=== PATIENT | female | born 1945 | race Caucasian/White ===

== ENCOUNTER → 2023-08-24 12:46 | Outpatient (REF) | payer OTHER, SELFPAY | LOC: RAD 12:46 | PROVIDERS: ATTENDING PHYSICIAN Surgery Vascular Surgery; FAMILY PHYSICIAN Internal Medicine | DX: I77.9 Disorder of arteries and arterioles, unspecified (principal); G93.0 Cerebral cysts | CPT/HCPCS: 93880 ==

== ENCOUNTER → 2024-01-04 06:29 | Day surgery (SDC) | payer OTHER, SELFPAY | LOC: GI 06:29 | PROVIDERS: ATTENDING PHYSICIAN Internal Medicine Gastroenterology | DX: Z12.11 Encounter for screening for malignant neoplasm of colon (principal); K57.30 Diverticulosis of large intestine without perforation or abscess without bleeding; K64.0 First degree hemorrhoids; D12.0 Benign neoplasm of cecum; Z80.0 Family history of malignant neoplasm of digestive organs | CPT/HCPCS: 45385; 88305 ==

== ENCOUNTER → 2024-02-04 14:10 | Outpatient (REF) | payer OTHER, SELFPAY | LOC: WDC 14:10 | PROVIDERS: ATTENDING PHYSICIAN Family Medicine | DX: Z78.0 Asymptomatic menopausal state (principal); Z12.31 Encounter for screening mammogram for malignant neoplasm of breast | CPT/HCPCS: 77063; 77067; 77080 ==

== ENCOUNTER → 2024-02-25 12:59 | Outpatient (REF) | payer OTHER, SELFPAY | LOC: RAD 12:59 | PROVIDERS: ATTENDING PHYSICIAN Surgery Vascular Surgery; FAMILY PHYSICIAN Family Medicine | DX: I77.9 Disorder of arteries and arterioles, unspecified (principal) | CPT/HCPCS: 93880 ==

== ENCOUNTER → 2024-04-14 10:17 | Outpatient (REF) | payer OTHER, SELFPAY | LOC: RCS 10:17 | PROVIDERS: ATTENDING PHYSICIAN Internal Medicine; FAMILY PHYSICIAN Family Medicine | DX: I48.0 Paroxysmal atrial fibrillation (principal) | CPT/HCPCS: 93225; 93226 ==

== ENCOUNTER 2024-08-15 08:28 | Outpatient (RCR) | payer OTHER, SELFPAY ==
[2024-08-15 08:56] VITALS: BP 161/65
[2024-08-15] MEDS: RECLAST 100 IV (08:57)
== END 2024-08-16 08:39 | disposition home or self-care (01) ==
LOC: OID 08:28
PROVIDERS: ATTENDING PHYSICIAN Internal Medicine Endocrinology, Diabetes & Metabolism; FAMILY PHYSICIAN Family Medicine
DX: M81.0 Age-related osteoporosis without current pathological fracture (principal)
CPT/HCPCS: 96365; J3489

== ENCOUNTER → 2024-08-31 11:32 | Outpatient (REF) | payer OTHER, SELFPAY | LOC: DHVS 11:32 | PROVIDERS: ATTENDING PHYSICIAN Surgery Vascular Surgery; FAMILY PHYSICIAN Family Medicine | DX: I77.9 Disorder of arteries and arterioles, unspecified (principal) | CPT/HCPCS: 93880 ==

== ENCOUNTER → 2024-09-19 06:45 | Outpatient (REF) | payer OTHER, SELFPAY | LOC: RAD 06:45 | PROVIDERS: ATTENDING PHYSICIAN Nurse Practitioner Family; FAMILY PHYSICIAN Family Medicine | DX: M79.89 Other specified soft tissue disorders (principal); M79.661 Pain in right lower leg | CPT/HCPCS: 93971 ==

== ENCOUNTER → 2024-10-13 10:20 | Outpatient (REF) | payer OTHER, SELFPAY | LOC: RCS 10:20 | PROVIDERS: ATTENDING PHYSICIAN Internal Medicine; FAMILY PHYSICIAN Family Medicine | DX: I50.32 Chronic diastolic (congestive) heart failure (principal); Z95.2 Presence of prosthetic heart valve; I65.23 Occlusion and stenosis of bilateral carotid arteries; I36.1 Nonrheumatic tricuspid (valve) insufficiency | CPT/HCPCS: 93306 ==

== ENCOUNTER → 2025-01-09 11:00 | Outpatient (REF) | payer OTHER, SELFPAY | LOC: RAD 11:00 | PROVIDERS: ATTENDING PHYSICIAN Nurse Practitioner Family; FAMILY PHYSICIAN Family Medicine | DX: M54.50 Low back pain, unspecified (principal) | CPT/HCPCS: 72110; 74018 ==

== ENCOUNTER → 2025-02-15 11:44 | Outpatient (REF) | payer OTHER, SELFPAY | LOC: WDC 11:44 | PROVIDERS: ATTENDING PHYSICIAN Family Medicine | DX: Z12.31 Encounter for screening mammogram for malignant neoplasm of breast (principal) | CPT/HCPCS: 77063; 77067 ==

== ENCOUNTER → 2025-03-13 11:26 | Outpatient (REF) | payer OTHER, SELFPAY | LOC: RAD 11:26 | PROVIDERS: ATTENDING PHYSICIAN Surgery Vascular Surgery; FAMILY PHYSICIAN Family Medicine | DX: I77.9 Disorder of arteries and arterioles, unspecified (principal) | CPT/HCPCS: 93880 ==

== ENCOUNTER → 2025-03-29 15:59 | Outpatient (REF) | payer OTHER, SELFPAY | LOC: RAD 15:59 | PROVIDERS: ATTENDING PHYSICIAN Family Medicine | DX: R05.1 Acute cough (principal) | CPT/HCPCS: 71046 ==

== ENCOUNTER → 2025-04-02 09:31 | Outpatient (REF) | payer OTHER, SELFPAY | LOC: RCS 09:31 | PROVIDERS: ATTENDING PHYSICIAN Internal Medicine; FAMILY PHYSICIAN Family Medicine | DX: I48.0 Paroxysmal atrial fibrillation (principal) | CPT/HCPCS: 93225; 93226 ==

== ENCOUNTER 2025-05-23 01:00 | Inpatient (IN) | payer OTHER, SELFPAY ==
[2025-05-22 19:20] VITALS: BP 181/91
[2025-05-22 19:48] LABS: Hematocrit 38.5 % (37.0-47.0); Hemoglobin 12.4 g/dL (12.0-16.0); Mean Corp Hgb Conc. 32.2 g/dL (33.0-37.0); Mean Corpuscular Volume 91.7 fL (81.0-99.0); Nucleated Red Blood Cells % 0 %; Platelet Count 159 10^3/uL (130-400); Red Cell Dist. Width 14.9 % (11.5-14.5)
[2025-05-22 20:03] LABS: ALT (SGPT) 24 U/L (0-35); AST (SGOT) 34 U/L (14-36); Albumin 4.6 g/dl (3.5-5.0); Alkaline Phosphatase 62 U/L (38-126); Blood Urea Nitrogen 22 mg/dl (7-17); Calcium 9.6 mg/dl (8.4-10.2); Carbon Dioxide 29 mmol/L (22-30); Chloride 105 mmol/L (98-107); Glucose 104 mg/dl (70-99); Potassium 4.6 mmol/L (3.5-5.1); Sodium 138 mmol/L (135-145); Total Protein 8.0 g/dl (6.3-8.2); eGFR > 60.00
[2025-05-22 20:04] LABS: INR 1.56; PT 19.0 Sec (11.4-14.6)
[2025-05-22 20:05] LABS: APTT 26.3 Sec (23.4-35.0)
[2025-05-23] VITALS (10 sets, daily range): BP systolic 125–178; BP diastolic 56–85; PULSE 66–80; BMI 34.4
--- NOTE | 2025-05-23 00:14 | ED.GENMED ---
History of Present Illness
General
Chief Complaint: Rectal Bleeding
Source: patient
Time Seen by Provider: 05/22/25 22:08
Nursing documentation reviewed up to this point in time: agreed with
History of Present Illness
History of Present Illness:
Note:
CHIEF COMPLAINT(S)
Rectal bleeding with clotting.
HISTORY OF PRESENT ILLNESS
The patient is an 80-year-old female with a history of aortic valve replacements, presenting with rectal bleeding that began around 5:00 PM today. She described the presence of clots and significant bleeding, noting that she initially observed the
bleeding while using the bathroom. She reports that the bleeding has been sufficient to soak a pad. The patient is currently taking apixaban (Eliquis) and had her last dose around 6:00 PM after noticing the bleeding. She has a history of
precancerous colonic polyps removed during a colonoscopy two years ago and was advised for follow-up, but reports no active diagnosis of neoplasm. The patient reports some left-sided abdominal pain but denies any significant pain during physical
examination. She experienced a similar bleeding episode over the weekend after consuming popcorn.
PAST MEDICAL AND SURIGICAL HISTORY
The patient has a history of aortic valve replacement surgeries, first at age 51 and again five years ago right before COVID-19.
MEDICATIONS
The patient is currently on apixaban (Eliquis) for anticoagulation due to her history of valve replacement surgeries. Additionally, she mentioned taking propranolol at night for head tremors.
PHYSICAL EXAM
General: Alert, no acute distress.
Skin: Warm, dry.
Head: Normocephalic, atraumatic.
Neck: Supple, trachea midline.
Eye Ears, nose, mouth and throat: Oral mucosa moist.
Cardiovascular: Normal peripheral perfusion, No edema.
Respiratory: Respirations are non-labored.
Gastrointestinal: Abdomen nondistended; reports slight tenderness on the left side, no severe pain on examination.
Back: Normal range of motion, Normal alignment.
Musculoskeletal: Normal range of motion, normal strength.
Neurological: Alert and oriented to person, place, time, and situation, no focal neurological deficit observed.
Psychiatric: Cooperative, appropriate mood & affect.
PLAN
- Obtain a CT scan of the abdomen to evaluate the source of bleeding.
- Perform comprehensive blood work to assess the extent of blood loss.
- Hold apixaban (Eliquis) temporarily due to bleeding.
- Admit the patient for overnight observation and further evaluation.
DIFFERENTIAL DIAGNOSIS
The differential diagnosis includes, in no particular order and is not limited to:
- Gastrointestinal bleeding due to anticoagulation therapy
- Colonic diverticulosis or diverticulitis
- Hemorrhoids
- Anal fissure
- Colorectal cancer
- Inflammatory bowel disease
- Gastrointestinal bleed due to dietary factors (e.g., popcorn)
- Rectal varices
- Angiodysplasia
- Peptic ulcer disease
Disposition:
SUMMARY OF ENCOUNTER
The patient, an 80-year-old female, presented with episodes of rectal bleeding which started on Wednesday and recurred multiple times today. The episodes included clotting, and the amount of blood loss was approximately a pads worth since it began.
She is taking apixaban and took another dose after the bleeding started. A CT scan was conducted to evaluate the source of bleeding, and the result was negative for acute findings. The patient will be admitted to the hospital service for further
observation and management of her bleeding.
DISPOSITION
Admit
ASSESSMENT
The patient is experiencing rectal bleeding while on apixaban, which increases her risk of bleeding due to anticoagulation therapy. The negative CT scan reduces the likelihood of an acute gastrointestinal pathology requiring immediate intervention.
Admission is appropriate to ensure close monitoring and manage any ongoing or recurrent bleeding.
PLAN
- Hospital admission for overnight observation and management.
- Temporarily hold apixaban due to concern over active bleeding.
- Monitor vital signs and bleeding status closely.
- Consider consultation with gastroenterology for further evaluation of possible underlying causes if bleeding persists.
MEDICAL DECISION MAKING
1. Number and Complexity of Problems Addressed: Chronic conditions affecting care include the patients history of aortic valve replacement and anticoagulation therapy with apixaban. Differential diagnosis includes gastrointestinal bleeding due to
anticoagulation therapy, colonic diverticulosis or diverticulitis, hemorrhoids, anal fissure, colorectal cancer, inflammatory bowel disease, gastrointestinal bleed due to dietary factors, rectal varices, angiodysplasia, and peptic ulcer disease.
2. Data:
- Category 1: Reviewed external records for apixaban use. CT scan results reviewed to rule out acute gastrointestinal issues.
- Category 3: Admission and further management discussed with hospitalist service.
3. Risk: The risk is elevated due to anticoagulation therapy and the potential for significant blood loss. Temporary cessation of apixaban carries risk of thromboembolic events, but is necessary to manage the active bleeding. Hospital admission
indicates potential for significant morbidity without close inpatient management.
DIAGNOSIS
Rectal bleeding, unspecified (K62.5). Possible association with anticoagulant use (T45.515A).
Past History
Past History
ED Past Medical History: HTN and Hypercholesterolemia
ED Past Surgical History: Cardiac (Aortic valve replacement) and
Social History
Tobacco: Non-smoker
Alcohol: None
Drug: None
Phy Exam
Physical Exam
Physical Exam:
.
Course
Orders/Labs/Results
Orders:
Orders
05/22/25 19:35
Type+Screen Urgent
Complete Blood Count/With Diff Urgent
Comprehensive Metabolic Panel Urgent
PTT Urgent
Prothrombin Time Urgent
05/22/25 22:31
CT Abd/pelvis W Iv Cont Urgent
Comment:
Reason For Exam: gi bleed, LLQ pain
Abnormal Lab Results
05/22/25
19:35
MCHC 32.2 L g/dL
(33.0-37.0)
RDW 14.9 H %
(11.5-14.5)
MPV 12.3 H fL
(7.4-10.4)
Lymphocytes % 19.8 L %
(20.5-51.1)
PT 19.0 H Sec
(11.4-14.6)
BUN 22 H mg/dl
(7-17)
Glucose 104 H mg/dl
(70-99)
05/22/25 19:35
05/22/25 19:35
Vital Signs
Initial and Last Documented VS:
Initial Vital Signs
Temp Pulse Resp BP Pulse Ox
98.1 F 74 15 181/91 95
05/22/25 19:20 05/22/25 19:20 05/22/25 19:20 05/22/25 19:20 05/22/25 19:20
Last Documented Vital Signs
Temp Pulse Resp BP Pulse Ox
98.1 F 74 15 181/91 95
05/22/25 19:20 05/22/25 19:20 05/22/25 19:20 05/22/25 19:20 05/23/25 00:14
*Radiology
Radiology exam reviewed: radiology read reviewed
*Pulse Oximetry
SaO2: 95
Oxygen Mode of Delivery: Room air
Patient hypoxic: no
*Critical Care Note
Total Time (30-74mins, 75-104mins- exclusive of procedures): Not Applicable
Update Note
Update Note:
NAME: NYLA ÁLVAREZ
DATE OF EXAM: 05/22/2025
Patient No: [id number]
Physician: SHERRI
Date of : 1945
Past Medical History (entered by Technologist):
Reason For Exam (entered by Technologist):
Other Notes (entered by Technologist): rectal bleeding starting at 1700, pt on thinners
priors
Additional Information (per [facility] Radiologist):
CT ABDOMEN AND PELVIS with IV contrast
IMPRESSION:
Comparison: 02/19/2018.
Mild colonic diverticulosis without diverticulitis.
No bowel obstruction or bowel wall thickening.
No obstructive uropathy.
No free fluid or free air.
Moderate supraumbilical hernia containing fat.
Cholecystectomy.
Atherosclerosis. No AAA.
Mild cardiomegaly with replaced aortic valve.
Case finalized on 05/22/25 23:48 EDT
Loc Varela M.D.
ED Attending Note
-
Portions of this chart may have been created with voice recognition software.� Occasional wrong word or��sound alike� substitutions may have occurred due to the inherent limitations of voice recognition software.
Discharge Plan
Departure
Patient Disposition: Admit
Date of Disposition: 05/23/25
Time of Disposition: 00:20
Presentation/result/management discussed w/ accepting MD/DO: Hospitalist
Patient with high blood pressure during this ER visit?: Yes
Condition: Good
Discharge Problem:
Rectal bleeding
Prescriptions:
No Action
rosuvastatin 10 MG tablet
30 mg PO DAILY
acetaminophen [Tylenol] 325 MG capsule
500 mg PO PRN PRN (Reason: pain)
cholecalciferol (vitamin D3) [Vitamin D3] 2,000 UNIT capsule
2,000 unit PO DAILY
furosemide 40 MG tablet
40 mg PO DAILY Qty: 7 0RF
Rx Instructions:
take for 7 days then stop
propranolol 60 mg Tablet
60 mg PO BID
Eliquis 2.5 mg tablet
5 mg PO BID
Rx Instructions:
take this lower dose while you are taking Paxlovid
Referrals:
Cris Erazo MD [Family Provider, Family Practice]
Interventions
Interventions:
*Risk Screen - Suicide Last Done: 05/22/25 19:20
*General Assessment Last Done: 05/22/25 19:20
*Neglect/Abuse Screening Last Done: 05/22/25 19:20
*ED COVID-19 Vaccine History Last Done: 05/22/25 19:20
*ED Influenza Vaccine History Last Done: 05/22/25 19:20
XP-[facility] Assessment Last Done: 05/22/25 23:00
Discharge Date and Time
Print Language: FAROESE
--- NOTE | 2025-05-23 00:35 | HPS.HSE ---
Family Physician
-
Family Physician: Cris Erazo MD
Chief Complaint
-
Rectal bleeding
History of Present Illness
Patient is 80-year-old has history of paroxysmal atrial fibrillation and she is anticoagulated on apixaban, prior history of aortic stenosis status post bioprosthetic aortic valve replacement at this time, essential tremor, hyperlipidemia, prior
history of CHF, hypertension presented to emergency department for rectal bleeding that started around 5 PM.
She reports significant bleeding and presence of clots while she was using the bathroom. She has soaked her pad since then. She last took Eliquis at 6 PM after noticing the bleeding. Her last colonoscopy was 2 years ago with removal of polyps but
no other active neoplasm.
Patient reports only sided abdominal pain. Denies any nausea vomiting or diarrhea. Denies any fevers or chills. Denies prior history of a GI bleed. Reports history of prior hemorrhoids. Stated that she did have some popcorn earlier in the week.
In the emergency department she was afebrile, blood pressure was 180/90 with a pulse of 74 and she was satting 95% on room air. Hemoglobin was 12.4 which is similar to prior hemogram platelet counts were normal. Electrolytes, BUN and creatinine
were normal.
CT of the abdomen pelvis showed diverticulosis but no active bleed, no diverticulitis and no other acute intra-abdominal process.
Medical History
Past Medical History
Past Medical History: Reports Other
Additional Past Medical History:
Paroxysmal atrial fibrillation
Aortic stenosis status post bio prosthetic aortic valve replacement
Congestive heart failure
Hypertension
Hyperlipidemia
Osteoporosis
Hemorrhoids
Past Surgical History: Reports Other
Additional Past Surgical History:
Appendectomy
Kidney stone surgery
section x 3
Aortic valve replacement mechanical in 1996, bioprosthetic in 2013
Tonsillectomy
Cholecystectomy
Social History
Tobacco: Non-smoker
Alcohol: None
Drug: None
Employment: Retired
Family History
Family History: Not pertinent
Allergies / Home Medications
Allergies reflects when Allergies were last updated in [facility].
Home Medications with original date entered in [facility]
Allergy/Medication List:
Allergies
Allergy/AdvReac Type Severity Reaction Status Date / Time
cephalexin (From Keflex) Allergy Intermediate Nausea Verified 08/15/24 09:14
adhesive tape (Adhesive Tape) Allergy Unknown Verified 08/15/24 09:14
oxycodone HCl (From Percocet) AdvReac vomiting Verified 08/15/24 09:14
Home Medications
rosuvastatin 10 mg tablet 30 mg PO DAILY 11/28/14
acetaminophen 325 mg capsule (Tylenol) 500 mg PO PRN PRN pain 04/12/19
cholecalciferol (vitamin D3) 50 mcg (2,000 unit) capsule (Vitamin D3) 2,000 unit PO DAILY 04/12/19
furosemide 40 mg tablet 40 mg PO DAILY #7 tabs 06/07/19
apixaban 2.5 mg tablet (Eliquis) 5 mg PO BID 08/15/24
propranolol 60 mg tablet 60 mg PO BID 08/15/24
Review of Systems
-
Constitutional: Reports No Symptoms
EENT: Reports No Symptoms
Respiratory: Reports No Symptoms
Cardiac: Reports No Symptoms
Abdomen/GI: Reports Bloody Stools
: Reports No Symptoms
Musculoskeletal: Reports No Symptoms
Skin: Reports No Symptoms
Neurological: Reports No Symptoms
Endocrine: Reports No Symptoms
Hematologic/Lymphatic: Reports No Symptoms
Psych: Reports No Symptoms
Physical Exam
Vital Signs
Vital Signs
Temp Pulse Resp BP Pulse Ox
98.1 F 74 15 181/91 95
05/22/25 19:20 05/22/25 19:20 05/22/25 19:20 05/22/25 19:20 05/23/25 00:14
Physical Exam
General: Well Developed, Well Nourished and No Apparent Distress
HEENT: NormoCephalic, Moist mucous membranes and Atraumatic
Respiratory: Clear
Cardiac: S1/S2 and Regular Rhythm; No Murmur or Rub
GI: Soft, Non Tender, Non Distended and Normal Bowel Sounds; No Organomegaly
Rectal: Deferred by Provider
Musculoskeletal: No Clubbing, No Cyanosis and No Edema
Skin: No Rash
Neuro: AO x 3 and Nonfocal/grossly intact
Laboratory Results
-
05/22/25 19:35
05/22/25 19:35
Laboratory Results
PT 19.0 Sec (11.4-14.6) H 05/22/25 19:35
INR 1.56 05/22/25 19:35
APTT 26.3 Sec (23.4-35.0) 05/22/25 19:35
Total Bilirubin 1.0 mg/dl (0.2-1.3) 05/22/25 19:35
AST 34 U/L (14-36) 05/22/25 19:35
ALT 24 U/L (0-35) 05/22/25 19:35
Alkaline Phosphatase 62 U/L (38-126) 05/22/25 19:35
Data Reviewed
-
CT Scan: Report Reviewed by me
Lab Data: Labs Reviewed by me
Impression/Plan
-
IMPRESSION:
80-year-old female with past medical history of atrial fibrillation on anticoagulation who presents to the emergency department with rectal bleeding that started around 5 PM. She her last dose of Eliquis was 6 PM. She is currently hemodynamically
stable, hemoglobin is 12.4. Other labs are unremarkable. CT scan shows no active bleed but does show diverticulosis. No masses noted. No diverticulitis.
PLAN:
Rectal bleeding -bright red blood per rectum, lower GI bleed in the setting of Eliquis use, possibly diverticular versus hemorrhoidal in source.
� Admit to telemetry
� Clear liquid diet for now
� Holding Eliquis
� Type and screen, trend H&H
� If bleeding continues may require transfusion prior to H&H trending down to less than 7
� No indication for reversal at this time
� Hold propranolol
� GI consultation
DVT prophy�SCDs
CODE STATUS�
--- NOTE | 2025-05-23 02:25 | PTCARENOTE ---
Pt arrived from ED via stretcher and walked to room x1 assist with single point cane. Initial assessment and admission questions completed. Pt assisted to bathroom and back to bed. Pt oriented to room. Bed in lowest position and call garrido within
reach.
[2025-05-23 06:11] LABS: INR 1.41; PT 17.5 Sec (11.4-14.6)
[2025-05-23 06:24] LABS: Blood Urea Nitrogen 17 mg/dl (7-17); Calcium 9.4 mg/dl (8.4-10.2); Carbon Dioxide 27 mmol/L (22-30); Chloride 108 mmol/L (98-107); Estimated Creatinine Clearance 49 ml/min; Glucose 85 mg/dl (70-99); Potassium 3.8 mmol/L (3.5-5.1); Sodium 139 mmol/L (135-145); eGFR > 60.00
[2025-05-23 08:18] LABS: Hematocrit 35.4 % (37.0-47.0); Hemoglobin 11.6 g/dL (12.0-16.0); Mean Corp Hgb Conc. 32.8 g/dL (33.0-37.0); Mean Corpuscular Volume 92.4 fL (81.0-99.0); Platelet Count 129 10^3/uL (130-400); Red Cell Dist. Width 15.0 % (11.5-14.5)
[2025-05-23] MEDS: INDERAL 60 MG PO ×2 (08:30→20:54)
[2025-05-23] MEDS: CRESTOR 30 MG PO (08:30)
--- NOTE | 2025-05-23 08:30 | W.PN.HOSP.TC ---
Addendum entered and electronically signed by Joey Zambrano MD 05/23/25 08:32:
#Chronic mild thrombocytopenia
since at least 2018
outpatient f/u with PCP
Original Note:
Today's Communication/Plan
-
see PN
Assessment / Plan
Assessment / Plan
80yo F with PMHx of s/p bioprosthetic valve, bilateral carotid stensosis, PAF on Eliquis, HTN, HLD, Hx of lower GIB 2/2 diverticulosis years ago came with 2 episodes of bright red blood per rectum.
A/P:
#Acute blood loss acnemia 2/2 lower GIB, possible diverticulosis-related
Serial H&H - remains stable in mild anemia range
Two large bore IV
CLD and advance diet if no more episodes of bleeding
Hold anticoagulation and avoid NSAIDs, antiplatelets. 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
GI consult: monitoring for 24h,no procedure planned
#Bioprosthetic AV
#Afib, paroxysmal
#HLD
#Essential HTN
cont home meds
telemetry
#Epigastric fat-containing hernia measuring 4 cm
no follow up as asymptomatic
DVT ppx SCDs
FUll code
I have spent at least 51min reviewing chart test results, communication with consultants and providing direct patient care
Anticipated Discharge: Within 24 hours
Subjective/Interval History
-
Date of Service: May 23, 2025
Objective Data
-
Labs:
Laboratory Results
05/23/25 05/23/25
05:46 11:55
WBC 7.0
Hgb 11.6 L Pending
Hct 35.4 L Pending
Plt Count 129 L
PT 17.5 H
INR 1.41
Sodium 139
Potassium 3.8
Chloride 108 H
Carbon Dioxide 27
BUN 17
Creatinine 0.7
Glucose 85
Calcium 9.4
Vital Signs:
Vital Signs
Temp Pulse Resp BP Pulse Ox
98.5 F 74 18 149/67 95
05/23/25 07:19 05/23/25 07:19 05/23/25 07:19 05/23/25 07:19 05/23/25 07:19
Review of Systems
-
History Source: Patient
All other systems: Reviewed and negative
Physical Exam
-
General: Well Developed, Well Nourished and No Apparent Distress
Respiratory: Clear to Auscultation
Cardiac: Regular Rhythm
Neuro: Awake, Alert, Oriented and AO x 3
Psych: Calm
--- NOTE | 2025-05-23 09:37 | CON.GI ---
Addendum entered and electronically signed by Afshan Woody MD 05/23/25 11:25:
I saw and examined the patient.
The BOOKING [employer]ICE OFFICER's note was reviewed and I agree with the note.
Comment: This is a very pleasant 80-year-old female who has significant past medical history as listed below who presented to the emergency room after she had an episode of rectal bleeding which initially started at 5 PM yesterday and she had 2 more
episodes. With initial episode she had mild left lower quadrant discomfort which seems to have now resolved. She is on Eliquis for A-fib and she is also status post bioprosthetic aortic valve replacement. She has no nausea or vomiting, no fevers
or chills. She had a colonoscopy in 12/[address] Alvarez and was noted to have hemorrhoids, diverticulosis and also a 10 mm cecal polyp which was removed piecemeal - TA and was recommended repeat colonoscopy in 1 year. She also has a family
history of colon cancer. Her hemoglobin on admission was 12.4 and a repeat is 11.6 BUN is normal at 17. She did take her Eliquis last night.
Assessment and plan lower GI bleed most likely related to diverticulosis especially since she also saw clots. Less likely from ischemic colitis or angioectasias. Hemodynamically stable and BUN is normal so doubt brisk upper GI bleed. she does have
prior history of intermittent hematochezia from internal hemorrhoids also and was referred to colorectal surgery for hemorrhoid banding but patient had not followed up yet. Would hold Eliquis for now and discussed with Dr. Zambrano also. Patient
wanted her field administrative assistant Dr. Song notified about Eliquis hold. Continue clear liquid diet and if she has no further bleeding then can advance her diet to low residue diet and hopefully DC tomorrow morning she does want to go home for Thanksgiving.
If she does have further brisk bleeding will need a CTA. She did have a CT abdomen on admission which showed diverticulosis without diverticulitis and no bowel obstruction was noted. I also encouraged her to start taking Metamucil after DC and
stay on it indefinitely
2. She does have a history of 10 mm cecal tubular adenoma which was removed piecemeal in December 2023 she is going to follow-up with Dr. Alvarez in 6 to 8 weeks to discuss risk-benefit about repeating a colonoscopy.
Original Note:
Consultation
-
Date/Time Consultation Requested: 05/23/25219
Date/Time Consultation Performed: 05/23/25937
Requesting Provider: Dr. Benitez
Performing Provider: Dr. Woody/TRINA Arnold
Reason for Consultation: rectal bleeding
Medical History
Chief Complaint / HPI
Chief Complaint: rectal bleeding
History of Present Illness:
80-year-old female with past medical history of aortic valve stenosis status post bioprosthetic aortic valve, A-fib on Eliquis, HFpEF, 10 mm colon polyp removed from cecum in 12/2023, hemorrhoids, hypertension, hyperlipidemia, osteoporosis,
diverticulosis, nephrolithiasis and essential tremor who presents to the emergency room with rectal bleeding associated with clots and some left lower quadrant pain. Her last dose of Eliquis was 05/22/2025 at 6 PM. We are asked to evaluate for the
same. The patient states that she easily has alternating bowel movements gone from soft/loose to hard. She states that she does not believe that she had a bowel movement on 05/21/2025. She states that she was in the process of having a bowel
movement yesterday which she was straining and it was hard. She then states that when she was passing a hard stool she noticed that she had blood. Initially this was bright red blood associated with left lower quadrant cramping. She did notice
some small clots. She had a second episode. This was approximately 5 PM at night. She did take her Eliquis at 6 PM. She then passed another episode of brown stool associated with rectal bleeding and clots. There was another episode of just
rectal bleeding that saturated her pad. She proceeded to the emergency room for further evaluation. She has not had any bleeding since that time. Her left lower quadrant tenderness/cramping has resolved. She has had no further signs of bleeding.
She has not had any bowel movements. She is tolerating clear liquid diet without any difficulty. She denies any fevers, chills, nausea, vomiting, melena, dysphagia or odynophagia. No early satiety or unintended weight loss. She takes no NSAIDs.
She was in the discussion in the past with Dr. Alvarez about repeating colonoscopy for her history of 10 mm colon polyp removed from the cecum in December 2023 to look at the area as it was removed in piecemeal. She does have a family history of colon
cancer in her mother who was diagnosed at the age of 75. The patient is quite hesitant about holding her Eliquis.
Past Medical History
Past Medical History: Other (Aortic valve stenosis status post replacement, HFpEF, A-fib, colon polyps, hemorrhoids, hypertension, hyperlipidemia, osteoporosis, diverticulosis, nephrolithiasis, essential tremor)
Past Surgical History: Other (Aortic valve replacement (bioprosthetic), , tonsillectomy, cholecystectomy, appendectomy)
Social History
Tobacco: Non-Smoker
Alcohol: None
Drug: None
Family History
Family History: Other (Family history of colon cancer (mother))
Allergies / Home Medications
Allergy/AdvReac Type Severity Reaction Status Date / Time
cephalexin (From Keflex) Allergy Intermediate Nausea Verified 08/15/24 09:14
adhesive tape (Adhesive Tape) Allergy Unknown Verified 08/15/24 09:14
oxycodone HCl (From Percocet) AdvReac vomiting Verified 08/15/24 09:14
�Medication �Instructions �Recorded
rosuvastatin 10 mg tablet 30 mg PO DAILY 11/28/14
acetaminophen 325 mg capsule 500 mg PO PRN PRN pain 04/12/19
(Tylenol)
cholecalciferol (vitamin D3) 50 2,000 unit PO DAILY 04/12/19
mcg (2,000 unit) capsule (Vitamin
D3)
furosemide 40 mg tablet 40 mg PO DAILY #7 tabs 06/07/19
apixaban 2.5 mg tablet (Eliquis) 5 mg PO BID 08/15/24
propranolol 60 mg tablet 60 mg PO BID 08/15/24
Review of Systems
-
All other systems: A 12 pt ROS was Negative except as stated above in HPI
Vital Signs
Temp Pulse Resp BP Pulse Ox
98.5 F 74 18 149/67 95
05/23/25 07:19 05/23/25 08:30 05/23/25 07:19 05/23/25 08:30 05/23/25 08:50
Physical Exam
Exam
General: No Apparent Distress
HEENT: Anicteric
Respiratory: Clear (Anterior)
Cardiac: Regular Rhythm
GI: Soft, Non Tender, Non Distended and Normal Bowel Sounds
Skin: Warm and Dry
Psych: Calm
Results
WBC 7.0 10^3/uL (4.8-10.8) 05/23/25 05:46
Hgb 11.6 g/dL (12.0-16.0) L 05/23/25 05:46
Hct 35.4 % (37.0-47.0) L 05/23/25 05:46
MCV 92.4 fL (81.0-99.0) 05/23/25 05:46
Plt Count 129 10^3/uL (130-400) L 05/23/25 05:46
Absolute Neuts (auto) 4.4 10^3/uL (1.4-6.5) 05/22/25 19:35
PT 17.5 Sec (11.4-14.6) H 05/23/25 05:46
INR 1.41 05/23/25 05:46
APTT 26.3 Sec (23.4-35.0) 05/22/25 19:35
Sodium 139 mmol/L (135-145) 05/23/25 05:46
Potassium 3.8 mmol/L (3.5-5.1) 05/23/25 05:46
Chloride 108 mmol/L (98-107) H 05/23/25 05:46
Carbon Dioxide 27 mmol/L (22-30) 05/23/25 05:46
BUN 17 mg/dl (7-17) 05/23/25 05:46
Creatinine 0.7 mg/dL (0.6-1.0) 05/23/25 05:46
Calcium 9.4 mg/dl (8.4-10.2) 05/23/25 05:46
Total Bilirubin 1.0 mg/dl (0.2-1.3) 05/22/25 19:35
AST 34 U/L (14-36) 05/22/25 19:35
ALT 24 U/L (0-35) 05/22/25 19:35
Alkaline Phosphatase 62 U/L (38-126) 05/22/25 19:35
Diagnostic Image Results:
CT abdomen and pelvis with IV contrast:
Diverticulosis without acute diverticulitis. No bowel obstruction.
No obstructive uropathy.
No acute inflammatory process within the abdomen or pelvis.
Prior GI Procedures:
- 01/06/2024 COLO: 10 mm polyp found in cecum. Diverticulosis in sigmoid colon. Internal hemorrhoids Removed in piecemeal recommend repeat again in 1 year at that time we will discuss risks and benefits and decide if she would like to have another
colonoscopy. Please place recall. First-degree family members children and siblings should have colonoscopies starting at age 40.�
Colonoscopy Dr. Toledo February 2018 hemorrhoids, diverticulosis, otherwise normal. Recommend repeat in [address] Toledo 2013 hemorrhoids.
Assessment / Plan
-
80-year-old female with past medical history of aortic valve stenosis status post bioprosthetic aortic valve, A-fib on Eliquis, HFpEF, 10 mm colon polyp removed from cecum in 12/2023, hemorrhoids, hypertension, hyperlipidemia, osteoporosis,
diverticulosis, nephrolithiasis and essential tremor who presents to the emergency room with rectal bleeding associated with clots and left lower quadrant pain. Her last dose of Eliquis was 05/22/2025 at 6 PM. We are asked to evaluate for the
same. WBC 7.0, hemoglobin currently 11.6 down from 12.4 on presentation. She is afebrile, vital signs stable. She had a CT of the abdomen and pelvis with IV contrast only. CTA was not performed. Diverticulosis without acute diverticulitis. No
bowel obstruction. No obstructive uropathy. No acute inflammatory process within the abdomen or pelvis. Current medications while here include propranolol and rosuvastatin. The patient is currently on a clear liquid diet. Has not passed any
further stool. No signs of rectal bleeding since arrival. Left lower quadrant discomfort that she had has resolved. The patient is hesitant about holding her Eliquis.
Impression:
Lower GI bleed, most likely diverticular versus hemorrhoidal
Acute blood loss anemia
History of A-fib on Eliquis, last dose 05/22/2025 at 6 PM-> patient quite hesitant about holding this.
History of bioprosthetic aortic valve
Mild thrombocytopenia, intermittent and chronic
History of 10 mm cecal polyp removed piecemeal (12/2023), family history of colon cancer (mother age 75)
Plan:
- Clear liquid diet, no red
- Trend hemoglobin
- Eliquis on hold, internal medicine to notify patient's field administrative assistant per patient request
- As long as patient without signs of bleeding will plan on advancing to low residue diet
- Follow-up with Dr. Alvarez as an outpatient to discuss repeat colonoscopy (follow up 6-8 weeks)
- I have referred the patient to colorectal surgery in the past for her hemorrhoids. The patient was again advised. She wishes to defer at this time, can f/u as outpatient.
- Further recommendations to be forthcoming
-
-
Thank you for consultation and allowing me to participate in the patient's care. Please call the online marketing specialist GI physician during the after hours with any questions or concerns.
--- NOTE | 2025-05-23 10:03 | CM ---
CM met with pt and dtr/Ashley bedside
Pt and spouse reside in a [place] with 1 NAVDE[address], full flight to 2nd floor
Pt is independent with her ADLs with use of a SPC at night, drives+
Pt denies financial insecurities and hax Rx coverage
PCP- Cris Erazo
Rx- Padmini Patton
Pt notes she is independent throughout room
IMM verbally reviewed- copy provided
Discharge Disposition- home, no needs anticipated, family confirmed ability to transport home tomorrow if cleared for dc
[2025-05-23 12:03] LABS: Hematocrit 37.3 % (37.0-47.0); Hemoglobin 12.3 g/dL (12.0-16.0)
[2025-05-23 18:52] LABS: Hematocrit 37.2 % (37.0-47.0); Hemoglobin 12.1 g/dL (12.0-16.0)
[2025-05-24 03:14] VITALS: BP 147/61
[2025-05-24 06:13] LABS: Hematocrit 33.7 % (37.0-47.0); Hemoglobin 11.2 g/dL (12.0-16.0)
[2025-05-24 07:30] VITALS: BP 168/73
[2025-05-24] MEDS: INDERAL 60 MG PO (09:05)
[2025-05-24] MEDS: CRESTOR 30 MG PO (09:06)
[2025-05-24 11:00] VITALS: BP 149/75
--- NOTE | 2025-05-24 11:08 | W.PN.HOSP.TC ---
Today's Communication/Plan
-
dc
Assessment / Plan
Assessment / Plan
80yo F with PMHx of s/p bioprosthetic valve, bilateral carotid stenosis, PAF on Eliquis, HTN, HLD, Hx of lower GIB 2/2 diverticulosis years ago came with 2 episodes of bright red blood per rectum, most likely 2/2 hemorrhoids or diverticular. Had
more bowel movements n the hospital, but stool was brown without blood. Eliquis temporary held and advised to be restarted upon d/c as per GI. Patient hemodynamically stable with stable Hgb.
A/P:
#Acute blood loss acnemia 2/2 lower GIB, possible diverticulosis-related vs hemorroids
Serial H&H - remains stable in mild anemia range
Two large bore IV
CLD and advance diet if no more episodes of bleeding
Hold anticoagulation and avoid NSAIDs, antiplatelets. Patient explained about increased risk for stroke, wants to inform her contract associate manager about this plan too.
GI consult: monitoring for 24h,no procedure planned, will need plan for Eliquis
#Bioprosthetic AV
#Afib, paroxysmal
#HLD
#Essential HTN
cont home meds
telemetry
#Epigastric fat-containing hernia measuring 4 cm
no follow up as asymptomatic
DVT ppx SCDs
FUll code
I have spent at least 36min reviewing chart test results, communication with consultants and providing direct patient care
Anticipated Discharge: Today
Subjective/Interval History
-
Date of Service: May 24, 2025
Objective Data
-
Labs:
Laboratory Results
05/24/25
05:40
Hgb 11.2 L
Hct 33.7 L
Vital Signs:
Vital Signs
Temp Pulse Resp BP Pulse Ox
98.2 F 72 18 168/73 95
05/24/25 07:30 05/24/25 07:30 05/24/25 07:30 05/24/25 07:30 05/24/25 07:30
I&O
05/23/25 05/24/25 05/25/25
06:59 06:59 06:59
Intake Total 480 / 480
Balance 480 / 480
Review of Systems
-
History Source: Patient
All other systems: Reviewed and negative
Physical Exam
-
General: No Apparent Distress
HEENT: Normocephalic
Respiratory: Clear to Auscultation
Musculoskeletal: No Clubbing, No Cyanosis and No Edema
Neuro: Awake, Alert and Oriented
Psych: Calm
--- NOTE | 2025-05-24 13:29 | W.PN.GI.CBS2 ---
Today's Communication / Plan
-
OK for d/c
OK to resume eliquis tonight
I recommended f/u with Dr Alvarez for f/u of her polyp, but she is not interested in further colonoscopy given her age and heart disease
Assessment / Plan
-
80-year-old female with past medical history of aortic valve stenosis status post bioprosthetic aortic valve, A-fib on Eliquis, HFpEF, 10 mm colon polyp removed from cecum in 12/2023, hemorrhoids, hypertension, hyperlipidemia, osteoporosis,
diverticulosis, nephrolithiasis and essential tremor who presents to the emergency room with rectal bleeding associated with clots and left lower quadrant pain. Her last dose of Eliquis was 05/22/2025 at 6 PM. We are asked to evaluate for the
same. WBC 7.0, hemoglobin currently 11.6 down from 12.4 on presentation. She is afebrile, vital signs stable. She had a CT of the abdomen and pelvis with IV contrast only. CTA was not performed. Diverticulosis without acute diverticulitis. No
bowel obstruction. No obstructive uropathy. No acute inflammatory process within the abdomen or pelvis. Current medications while here include propranolol and rosuvastatin. The patient is currently on a clear liquid diet. Has not passed any
further stool. No signs of rectal bleeding since arrival. Left lower quadrant discomfort that she had has resolved. The patient is hesitant about holding her Eliquis.
Impression:
Lower GI bleed, most likely diverticular versus hemorrhoidal
Acute blood loss anemia
History of A-fib on Eliquis, last dose 05/22/2025 at 6 PM-> patient quite hesitant about holding this.
History of bioprosthetic aortic valve
Mild thrombocytopenia, intermittent and chronic
History of 10 mm cecal polyp removed piecemeal (12/2023), family history of colon cancer (mother age 75)
Subjective
Subjective
Date of Service: May 24, 2025
No complaints. No further bleeding. Last BPR was Wednesday.
Objective
Data Reviewed
Laboratory Data:
Laboratory Results
05/24/25 05:40
05/23/25 05:46
Laboratory Results
PT 17.5 Sec (11.4-14.6) H 05/23/25 05:46
INR 1.41 05/23/25 05:46
APTT 26.3 Sec (23.4-35.0) 05/22/25 19:35
Total Bilirubin 1.0 mg/dl (0.2-1.3) 05/22/25 19:35
AST 34 U/L (14-36) 05/22/25 19:35
ALT 24 U/L (0-35) 05/22/25 19:35
Alkaline Phosphatase 62 U/L (38-126) 05/22/25 19:35
Vital Signs and I&O:
Vital Signs
Temp Pulse Resp BP Pulse Ox
98.2 F 70 18 149/75 96
05/24/25 11:00 05/24/25 11:00 05/24/25 11:00 05/24/25 11:00 05/24/25 11:00
I&O
05/23/25 05/24/25 05/25/25
06:59 06:59 06:59
Intake Total 480 / 480
Balance 480 / 480
Physical Exam
Physical Exam
GI: Soft, Non Distended and Non Tender
--- NOTE | 2025-05-24 13:33 | W.DCSUMMARY ---
Discharge Summary
Discharge Data
Date of Admission: 05/23/25
Date of Discharge: 05/24/25
-
Pending Results: No
Hospital Course
80yo F with PMHx of s/p bioprosthetic valve, bilateral carotid stenosis, PAF on Eliquis, HTN, HLD, Hx of lower GIB 2/2 diverticulosis years ago came with 2 episodes of bright red blood per rectum, most likely 2/2 hemorrhoids or diverticular. Had
more bowel movements n the hospital, but stool was brown without blood. Eliquis temporary held and advised to be restarted upon d/c as per GI. Patient hemodynamically stable with stable Hgb. medcially stable for d/c home. Referral to GI in 4-6 weeks
provided
I have spent at least 36min reviewing chart test results, communication with consultants and providing direct patient care
Patient was managed for:
#Acute blood loss acnemia 2/2 lower GIB, possible diverticulosis-related vs hemorroids exacerbated by Eliquis
#Bioprosthetic AV
#Afib, paroxysmal
#HLD
#Essential HTN
#Epigastric fat-containing hernia measuring 4 cm
#Chronic mild thrombocytopenia
Discharge Plan
-
Patient Disposition: Home (Routine Discharge)
Discharge Diagnosis/Procedures: GIB
Diet: Other diet
Additional Diets: High fiber
Activity: As tolerated
Referrals:
Cris Erazo MD [Family Provider, Family Practice]
Dany Alvarez MD [Active, Gastroenterology] - in four to six weeks
Prescriptions:
Continued
rosuvastatin 10 MG tablet
30 mg PO DAILY
acetaminophen [Tylenol] 325 MG capsule
500 mg PO PRN PRN (Reason: pain)
cholecalciferol (vitamin D3) [Vitamin D3] 2,000 UNIT capsule
2,000 unit PO DAILY
furosemide 40 MG tablet
40 mg PO DAILY Qty: 7 0RF
Rx Instructions:
take for 7 days then stop
propranolol 60 mg Tablet
60 mg PO BID
Eliquis 2.5 mg tablet
5 mg PO BID Qty: 30 0RF
Discharge Orders:
Discharge Patient (As Directed); Ordered 05/24/25
Ordered By: Joey Zambrano
Discharge Date and Time
Print Language: SINHALA
--- NOTE | 2025-05-24 13:57 | CM ---
MD entered order for discharge.
Spoke with patient she agrees with dc to home .
Offered VN she declined need.
Timur spouse will drive her home.
PLAN Home no needs
== END 2025-05-24 13:55 | disposition home or self-care (01) | DRG 378 ==
LOC: 2 NORTH 01:00
PROVIDERS: Student in an Organized Health Care Education/Training Program; ADMITTING PHYSICIAN Internal Medicine; ATTENDING PHYSICIAN Internal Medicine; EMERGENCY PHYSICIAN Student in an Organized Health Care Education/Training Program; FAMILY PHYSICIAN Family Medicine; OTHER PHYSICIAN Internal Medicine Gastroenterology
DX: K92.2 Gastrointestinal hemorrhage, unspecified (principal); D62 Acute posthemorrhagic anemia; D68.32 Hemorrhagic disorder due to extrinsic circulating anticoagulants; I50.32 Chronic diastolic (congestive) heart failure; E78.00 Pure hypercholesterolemia, unspecified; D69.6 Thrombocytopenia, unspecified; G25.0 Essential tremor; I65.23 Occlusion and stenosis of bilateral carotid arteries; I11.0 Hypertensive heart disease with heart failure; I48.0 Paroxysmal atrial fibrillation; M81.0 Age-related osteoporosis without current pathological fracture; T45.515A Adverse effect of anticoagulants, initial encounter; Y92.9 Unspecified place or not applicable; Z79.01 Long term (current) use of anticoagulants; Z87.442 Personal history of urinary calculi; Z95.3 Presence of xenogenic heart valve; Z86.0101 Personal history of adenomatous and serrated colon polyps; Z90.49 Acquired absence of other specified parts of digestive tract; Z88.1 Allergy status to other antibiotic agents; Z88.5 Allergy status to narcotic agent; Z91.048 Other nonmedicinal substance allergy status; Z80.0 Family history of malignant neoplasm of digestive organs; Z87.19 Personal history of other diseases of the digestive system
CPT/HCPCS: 74177; 80048; 80053; 85014; 85018; 85025; 85027; 85610; 85730; 86850; 86900; 86901; 99284; Q9967